=== PATIENT | male | born 1995 | race African-American/Black ===

== ENCOUNTER 2017-09-18 21:07 | Inpatient (IN) | payer BC ==
[~2017-09-18 21:07] MED LIST: ISOVUE-370 76%-LOCM 1 ML ONE
[2017-09-18] MEDS ORDERED: Ondansetron HCl/PF 4 MG/2 ML Vial ONE (22:42)
[2017-09-18] MEDS ORDERED: Morphine 4 MG/ML VIAL ONE (22:42)
[2017-09-18 22:48] LABS: #Basophils 0.1 thou/uL (0.0-0.2); #Eosinphils 0.1 thou/uL (0.0-0.7); #Lymphocytes 2.1 thou/uL (1.20-3.40); #Monocytes 0.9 thou/uL (0.11-0.59); %Basophils 0.7 % (0.0-1.0); %Eosinophils 0.7 % (0.0-10.0); %Monocytes 6.6 % (0.0-10.0); Hemoglobin 16.2 g/dL (14.0-18.0); Mean Corpuscular HGB CONC 33.2 g/dL (32.0-36.0); Mean Corpuscular Hemoglobin 31.7 pg (27.0-31.0); Mean Corpuscular Volume 95.5 fl (80.0-94.0); Mean Platelet Volume 7.1 fL (7.4-10.4); Platelet Count 306 thou/uL (130-400); RBC Distribution Width 11.8 % (11.5-14.5); Red Blood Cell (RBC) Count 5.11 mill/uL (4.70-6.10); White Blood Cell (WBC) Count 13.1 thou/uL (4.8-10.8)
[2017-09-18 23:11] LABS: ALT (SGPT) 9 U/L (8-55); AST (SGOT) 12 U/L (5-34); Albumin 4.4 g/dL (3.5-5.0); Alkaline Phosphatase 109 U/L (40-150); Anion Gap 13 mmol/L (10-20); BUN (Urea Nitrogen) 12 mg/dL (8.9-20.6); Bilirubin, Total 0.2 mg/dL (0.2-1.2); Calc. Creatinine Clearance 0 mL/min (70-130); Calcium 9.7 mg/dL (7.8-10.44); Carbon Dioxide 26 mmol/L (22-29); Chloride 102 mmol/L (98-107); Estimated GFR-MDRD Greater than 90; Globulin 3.5 g/dL (2.4-3.5); Glucose 131 mg/dL (70-105); Potassium 3.9 mmol/L (3.5-5.1); Protein, Total 7.9 g/dL (6.0-8.3); Sodium 137 mmol/L (136-145)
[2017-09-18] MEDS ORDERED: Piperacillin/Tazobactam 4.5 GM in Sodium Chloride 0.9% 100 ML IVPB SCH (23:45)
[2017-09-18] MEDS ORDERED: Clindamycin/D5W 900 mg/50 ml Premix Bag ONE (23:50)
--- NOTE | 2017-09-18 23:51 | CT ---
CT PELVIS WITH CONTRAST: 09/18/17 HISTORY: 21-year-old male with abscess of the right buttock. FINDINGS: There is an intermediate density fluid collection surrounded by moderately thick, enhancing denny, in the right aspect of the intergluteal fold, which measures approximately 6.5 cm craniocaudal x 5 cm A P x 2 cm transverse. It is inseparable form the anus. There is adjacent fat stranding representing ed yaz in the adjacent medial fat of the right buttock. There is very little fat within the pelvic cavit y, typical for this age group. This makes if difficult to distinguish fluid filled small bowel loops within the posterior pelvic cavity from any potential perirectal abscess, without enteric rectal cont rast. There is no destructive osseous lesion involving the sacrum, coccyx, or the rest of the pelvis. IMPRESSION: Soft tissue abscess of the right intergluteal fold, possibly also with perianal extension. POS: MERT
[2017-09-19] MEDS ORDERED: Morphine 4 MG/ML VIAL ONE ×3 (00:23→06:38)
[2017-09-19] MEDS ORDERED: Ondansetron ODT 4 MG TAB SL PRN (03:41)
[2017-09-19] MEDS ORDERED: Sodium Chloride 0.9% 1,000 ML IV SCH (03:41)
[2017-09-19] MEDS ORDERED: Ondansetron HCl/PF 4 MG/2 ML Vial IVP PRN ×2 (03:41→11:07)
[2017-09-19] MEDS ORDERED: Morphine 4 MG/ML VIAL SLOW IVP PRN (03:43)
[2017-09-19] MEDS ORDERED: Piperacillin/Tazobactam 4.5 GM in Sodium Chloride 0.9% 100 ML IVPB SCH (06:00)
[2017-09-19] MEDS ORDERED: Clindamycin/D5W 900 MG in Premix Bag 1 BAG IVPB SCH (08:00)
[2017-09-19] MEDS ORDERED: Midazolam HCl 2 mg/2 ml Vial ONE ×2 (08:59→09:53)
[2017-09-19] MEDS ORDERED: Fentanyl 250 MCG/5 ML VIAL ONE ×2 (08:59→09:16)
[2017-09-19 09:02] VITALS: BMI 19.0
[2017-09-19] MEDS ORDERED: Ondansetron HCl/PF 4 MG/2 ML Vial ONE ×2 (09:16→16:58)
[2017-09-19] MEDS ORDERED: Ketorolac Tromethamine 30 MG/ML VIAL ONE (09:53)
[2017-09-19] MEDS ORDERED: Famotidine/PF 20 mg/2ml Vial ONE (09:53)
[2017-09-19] MEDS ORDERED: Lidocaine 2% 10 ML INJ ONE (10:24)
[2017-09-19] MEDS ORDERED: Bupivacaine HCl 0.5%/Epinephrine 1:200,000/PF 30 ml Vial ONE (10:24)
--- NOTE | 2017-09-19 10:30 | HP ---
DATE OF SERVICE: 09/19/2017 SUBJECTIVE: Frantz Butt is a 21-year-old black male who works with [employer] has had 2-3 day s of right perirectal pain, presented to the emergency room early this morning, received Zosyn and va ncomycin. He is hospitalized until he can be seen. ALLERGIES: None. TOBACCO: Rarely. ALCOHOL: Rarely. MEDICATIONS: None. PAST SURGICAL HISTORY: Noncontributory. PAST MEDICAL HISTORY: Noncontributory. REVIEW OF SYSTEMS: Ten point noncontributory. PHYSICAL EXAMINATION: VITAL SIGNS: 55 kilograms, 120/83, 116, 18, 99.8 degrees. HEAD, EYES, EARS, NOSE, AND THROAT: Unremarkable. NEUROLOGIC: Intact. Cranial nerves intact. LUNGS: Clear to auscultation. CARDIAC: Regular rate and rhythm without murmur or gallop. ABDOMEN: Soft, nontender, nondistended, no masses, no hernias, no lymphadenopathy in neck, axilla, a nd groins. EXTREMITIES: Without edema, no venous stasis changes. Right perianal area reveals changes consisten t with perirectal abscess with a 2 mm area of purulent drainage. Very tender in the periphery. ASSESSMENT AND PLAN: Perirectal abscess. PLAN: Incision and drainage. Watch out packing and discharge home later today. Wound care will con sist of leaving the packing in today unless of course he has a bowel movement. Tomorrow he can begin daily soaking the wound and washing with soap and water in the bath. Packing can be removed in the morning and does not need to be replaced. He will use a pad or a Kotex pad to control the drainage. Risk of development of [id number] discussed. Followup in my office in 2-3 weeks. Recommended d ischarge analgesics, Tylenol, Motrin and Ultram. Unlikely that he will need oral antibiotics.
[2017-09-19 11:01] VITALS: TEMP 98.1
--- NOTE | 2017-09-19 11:02 | OP ---
DATE OF OPERATION: 09/19/2017 PREOPERATIVE DIAGNOSIS: Right perirectal abscess. POSTOPERATIVE DIAGNOSIS: Right perirectal abscess. PROCEDURE: Incision and drainage right perirectal abscess. SURGEON: Dr. Bridger Jeong ANESTHESIA: General. Local 0.5% Marcaine with epinephrine, 30 mL, mixed with 2% Xylocaine, 10 mL, 2 0 mixture used. PROCEDURE: The patient was taken to the operating room under general anesthesia in the dorsal lithot randy position, buttocks, perineum, scrotum prepared with Betadine, draped in routine fashion. In the right anterior lateral perianal area there was a several millimeter focus of purulent drainage. This was probed and opened for a 3 cm drainage excising small ellipse of skin evacuating the perirectal abscess of purulent material and irrigating it. Hemostasis gained with cautery. It was packed open. Local anesthetic field had about the wound for postoperative pain control. The patient tolerated t he procedure well.
[2017-09-19] MEDS ORDERED: Meperidine HCl/PF 25 MG/ML VIAL SLOW IVP PRN (11:07)
[2017-09-19] MEDS ORDERED: Promethazine HCl 25 MG/ML VIAL IM PRN (11:07)
[2017-09-19] MEDS ORDERED: Promethazine HCl 25 MG/ML VIAL SLOW IVP PRN (11:07)
[2017-09-19] MEDS ORDERED: Ibuprofen 600 MG TAB PO PRN (11:08)
[2017-09-19] MEDS ORDERED: traMADol HCl 50 MG TAB PO PRN ×2 (11:08)
[2017-09-19] MEDS ORDERED: Acetaminophen 500 MG TAB PO PRN (11:08)
--- NOTE | 2017-09-19 13:13 | DIS ---
Paramjit Butt was admitted with a perirectal abscess, hospitalized overnight given antibiotics, and taken to the operating room. This was drained. Postoperatively, he was sent home with Ultram #20, 2 refills, Tylenol, Motrin [id number] for pain. He is to follow up in my office in approximatel y 2 weeks. He was removed packing in the morning. We washed the wound with soap and water. He does not need to repack it, but only to wear a gauze pad or Kotex pad to control the drainage. He will w waldo it daily with soap and water without repacking it and see me in the office in 1-2 weeks. He was given Ultram for pain, otherwise instructed to take Tylenol and Motrin [id number].
[2017-09-19 16:46] VITALS: BP 107/60
[2017-09-19] MEDS ORDERED: Propofol 200 MG/20 ML VIAL ONE (16:58)
[2017-09-19] MEDS ORDERED: Lidocaine 1% PF 5 ML VIAL ONE (16:58)
[2017-09-19] MEDS ORDERED: Dexamethasone 20 MG/5 ML VIAL ONE (16:58)
[2017-09-19] MEDS ORDERED: PHENYLEPHRINE-NS 100 MCG/ML 10 ML SYRINGE ONE (16:58)
--- NOTE | 2017-09-21 02:23 | PQF ---
Frantz Butt RICHARD D MD [id number] CLINICAL DOCUMENTATION CLARIFICATION FORM: POST DISCHARGE Addendum to original discharge summary date: ____ Late entry note date: __ DATE: 09/21/17 ATTN: Dr. Jeong Please exercise your independent, professional judgment in responding to the clarification form. Clinical indicators are provided on the bottom of this form for your review Please check appropriate box(s): BMI is 19 with an associated diagnosis of: [ ] underweight [ ] malnutrition [ ] cachexia [ ] Other diagnosis [ ] Unable to determine For continuity of documentation, please document condition throughout progress notes and discharge summary. Thank You. BMI < 19 Under weight 19 - 24.9 Healthy 25.0 - 29.9Slightly Overweight 30.0 - 34.9Obese 35.0 - 39.9Severely Obese 40.0 and OverMorbidly Obese CLINICAL INDICATORS - SIGNS / SYMPTOMS / LABS: BMI of: __19 RISK FACTORS: TREATMENTS: MTDD
== END 2017-09-19 14:29 | disposition home or self-care (01) | DRG 346 ==
LOC: ERS 21:07 → SJJU 09-19 00:28 → ERHOLD 09-19 00:39 → SJJU 09-19 08:00
PROVIDERS: ADMIT Specialist; ATTEND Specialist
PROC: 0D9P0ZZ Drainage of Rectum, Open Approach (ICD-10-PCS; principal; 2017-09-19)
PROC: 0HB9XZZ Excision of Perineum Skin, External Approach (ICD-10-PCS; 2017-09-19)
DX: K61.0 Anal abscess (principal); F17.210 Nicotine dependence, cigarettes, uncomplicated
CPT/HCPCS: 72193; 80053; 85025; 87040; 96361; 96365; 96367; 96375; 96376; J0131; J0670; J1100; J1885; J2001; J2250; J2270; J2405; J2543; J2704; J3010; J3370; J3490; J7050; S0028

== ENCOUNTER 2024-06-30 00:28 | Emergency (ER) | payer BC, SELFPAY | END 2024-06-30 01:36 | LOC: ERS 00:28 | DX: Z04.1 Encounter for examination and observation following transport accident (principal); F17.290 Nicotine dependence, other tobacco product, uncomplicated; V49.88XA Car occupant (driver) (passenger) injured in other specified transport accidents, initial encounter | CPT/HCPCS: 99283 ==